=== PATIENT | male | born 1995 | race African-American/Black ===

== ENCOUNTER 2025-09-27 03:36 | Emergency (ER) | payer MEDICAID ==
[~2025-09-27] VITALS: Ht 172.7 cm; Wt 104.0 kg
[~2025-09-27 03:36] MED LIST: ACET650S27 RC; HYDR30CR80 TP; LEVO750T68 MT
[2025-09-27 03:42] VITALS: O2SAT 100
[2025-09-27] MEDS: METHYLPREDNISOLONE SOD SUCC 125MG/2ML (ACT-O-VIAL) IV ONE (04:32)
[2025-09-27] MEDS: FAMOTIDINE 20MG/2ML VIAL IV ONE (04:32)
[2025-09-27] MEDS: DIPHENHYDRAMINE 50MG/ML VIAL IV ONE (04:36)
[2025-09-27] MEDS ORDERED: P50 MT (05:51)
[2025-09-27] MEDS ORDERED: DIPH25CA83 MT (05:51)
[2025-09-27] MEDS ORDERED: FAMO-135 MT (05:51)
[2025-09-27] MEDS ORDERED: EPIN0.3P3 IM (05:54)
[2025-09-27 06:53] VITALS: BP 131/69; PULSE 95; RESP 16; TEMP 36.8; O2SAT 100
== END 2025-09-27 06:55 | disposition home or self-care (01) ==
LOC: ER 03:36
DX: T78.3XXA Angioneurotic edema, initial encounter (principal); F41.9 Anxiety disorder, unspecified; Z79.899 Other long term (current) drug therapy; X58.XXXA Exposure to other specified factors, initial encounter; Y93.89 Activity, other specified; Y92.89 Other specified places as the place of occurrence of the external cause; Y99.8 Other external cause status
CPT/HCPCS: 99284; 96374; 96375; J2919; J1200; J1308